=== PATIENT | male | born 1970 | race Two or more races ===

== ENCOUNTER 2023-10-21 10:40 | Outpatient (CLI) | payer OTHER, SELFPAY | END 2023-10-21 10:41 | disposition home or self-care (01) | LOC: AMB 10-27 23:51 | PROVIDERS: Visit Provider Emergency Medicine Emergency Medical Services | DX: R04.2 Hemoptysis (principal); R53.81 Other malaise | CPT/HCPCS: A0425; A0429 ==

== ENCOUNTER 2023-10-21 11:00 | Emergency (ER) | payer OTHER, SELFPAY ==
[2023-10-21 11:04] VITALS: BP 166/103; PULSE 76; RESP 18; TEMP 36.3; O2SAT 97
[2023-10-21] MEDS: dexAMETHasone 10 MG/ML inj PO (11:37)
--- NOTE | 2023-10-21 11:39 | ED_ITS ---
HPI - General Adult General Chief complaint: Cough Stated complaint: flu like symptoms Time Seen by Provider: 10/21/23 11:11 Source: patient Limitations: no limitations History of Present Illness HPI narrative: Complaining of not feeling well for about 2 weeks. He states that he feels fatigued in achy. Has a cough. Denies vomiting. He had diarrhea for the 1st time this morning. For the last 3 days he has not been eating secondary to decreased appetite. No urinary symptoms. Denies chest or abdominal pain. Patient is a resident at [facility], has been exposed influenza there. Related Data Home Medications Medication Instructions Recorded Confirmed No Known Home Medications 10/21/23 10/21/23 Allergies Allergy/AdvReac Type Severity Reaction Status Date / Time No Known Drug Allergies Allergy Verified 10/21/23 11:09 Review of Systems Status of ROS: Reports: 10 or more systems reviewed and unremarkable except as noted in History and below Exam Narrative: Exam Narrative: Overweight, well-developed patient , appears fatigued. Alert and oriented. Answers questions appropriately. Mood and affect are appropriate. Thoughts are goal oriented and rational. No tangential or magical thinking noted. Patient speaks in full sentences without needing to catch his breath. He is tachycardic. HEENT: Normocephalic atraumatic. Pupils are equally round reactive to light. Extraocular muscles are intact. Conjunctivae are moist without any icterus noted. Moist mucous membranes. Posterior pharynx is normal. Neck is soft w ithout any lymphadenopathy or thyromegaly. No masses are appreciated. Lips are dry, cracked with dried blood around them. Cardiovascular: Heart is tachycardic, with regular rhythm S1 and S2 are present without any murmurs. Lungs: Clear to auscultation bilaterally no wheezes rhonchi or rales are appreciated. Patient takes deep breaths without any discomfort. Abdomen: Soft, nontender and nondistended. He protuberant. Normal bowel sounds. No guarding or rebound. Extremities: Bilateral lower extremities are without edema. Skin: Well perfused without any obvious rashes. Const: Vital Signs, click to edit/add: Vital Signs - 24 hr 10/21/23 11:09 Temperature 101 F H Pulse Rate [Pulse Oximeter] 118 H Respiratory Rate 24 Blood Pressure [Ri ght Upper Arm] 147/69 H Pulse Oximetry 97 Oxygen Delivery Me thod Room Air Course Vital Signs Vital signs: Initial Vital Signs Temperature 101 F H 10/21/23 11:09 Temperature Source Temporal Artery Scan 10/21/23 11:09 Pulse Rate 118 H 10/21/23 11:09 Respiratory Rate 24 10/21/23 11:09 Blood Pressure 147/69 H 10/21/23 11:09 Blood Pressure Mean 95 10/21/23 11:09 Blood Pressure Position Semi-Fowlers 10/21/23 11:09 Pulse Oximetry 97 10/21/23 11:09 Oxygen Delivery Method Room Air 10/21/23 11:09 Vital Signs Temperature 101 F H 10/21/23 11:09 Pulse Rate 118 H 10/21/23 11:09 Respiratory Rate 24 10/21/23 11:09 Blood Pressure 147/69 H 10/21/23 11:09 Pulse Oximetry 97 10/21/23 11:09 Oxygen Delivery Method Room Air 10/21/23 11:09 Temperature 101 F H 10/21/23 11:09 Pulse Rate 118 H 10/21/23 11:09 Respiratory Rate 24 10/21/23 11:09 Blood Pressure 147/69 H 10/21/23 11:09 Pulse Oximetry 97 10/21/23 11:09 Oxygen Delivery Method Room Air 10/21/23 11:09 Discharge Plan Discharge Prescriptions: No Action No Known Home Medications Follow Up/Referrals: Provider,Not a Local [Primary Care Provider] -
--- NOTE | 2023-10-21 12:17 | ED.GENADULT ---
HPI - General Adult General Chief complaint: Cough Stated complaint: flu like symptoms Time Seen by Provider: 10/21/23 11:11 History of Present Illness HPI narrative: This 53-year-old male comes in reporting 2 weeks of upper respiratory symptoms including cough and nasal congestion. He does not report any fevers. He states that he is coughing more often at night and recently has noted some blood-tinged sputum. He arrives here with normal vital signs except his blood pressure is somewhat elevated. Related Data Previous Rx's Medication Instructions Recorded ketorolac 10 mg tablet 10 mg PO Q8H 5 days #15 tabs 10/21/23 Allergies Allergy/AdvReac Type Severity Reaction Status Date / Time No Known Drug Allergies Allergy Verified 10/21/23 11:09 Review of Systems Status of ROS: Reports: 10 or more systems reviewed and unremarkable except as noted in History and below Narrative: Constitutional: No fevers, no weight gain or loss. Eyes: No discharge. No vision changes. HENT: No congestion, no sore throat, no ear pain. Cardiovascular: No chest pain, no palpitations. Respiratory: No shortness of breath, no wheezes, no cough. Gastrointestinal: No abdominal pain, no vomiting, no diarrhea. Genitourinary: No dysuria, no hematuria. Musculoskeletal: Normal range of motion. Skin: No rashes, no pruritis. Neurological: No dizziness, weakness, sensory change, speech change. Endo/Heme/Allergies: No bruising or bleeding. No polydipsia. Pysch: no suicidality, no anxiety, no insomnia. All other systems reviewed and are negative. PFSH [facility] Social History Smoking Status: Never smoker How often do you have a drink containing alcohol: 4 or more times a week AUDIT-C Alcohol total score: 4 Non-prescribed substance use: denies use Exam Narrative: Exam Narrative: Constitutional: Well-developed, well-nourished, no acute distress. HEENT: Normocephalic, atraumatic. Neck: Normal range of motion. Nontender. Supple. Heart: Regular. No murmurs. Normal rate. Intact distal pulses. Lungs: Clear to auscultation. No chest discomfort. No wheezes, rhonchi, or rales. Abdomen: Normal bowel sounds. Nontender. No rebound tenderness. Genitalia: Deferred. Back: No midline tenderness. Normal range of motion. Extremities: Normal range of motion. No injury. Skin: Intact. No rash. Warm. No erythema or pallor. Neurologic: No altered sensation. No weakness. Alert and oriented. Psychiatric: No suicidality. No anxiety or depression. No insomnia. Nursing notes and vitals signs are reviewed. Const: Vital Signs, click to edit/add: Vital Signs - 24 hr 10/21/23 11:04 Temperature 97.3 F L Pulse Rate [Pulse Oximeter] 76 Respiratory Rate 18 [facility] 166/103 H Pulse Oximetry 97 Oxygen Delivery Me thod Room Air Course Vital Signs Vital signs: Initial Vital Signs Temperature 97.3 F L 10/21/23 11:04 Temperature Source Temporal Artery Scan 10/21/23 11:04 Pulse Rate 76 10/21/23 11:04 Respiratory Rate 18 10/21/23 11:04 Blood Pressure 166/103 H 10/21/23 11:04 Blood Pressure Mean 124 H 10/21/23 11:04 Blood Pressure Position Sitting 10/21/23 11:04 Pulse Oximetry 97 10/21/23 11:04 Oxygen Delivery Method Room Air 10/21/23 11:04 Vital Signs Temperature 97.3 F L 10/21/23 11:04 Pulse Rate 76 10/21/23 11:04 Respiratory Rate 18 10/21/23 11:04 Blood Pressure 166/103 H 10/21/23 11:04 Pulse Oximetry 97 10/21/23 11:04 Oxygen Delivery Method Room Air 10/21/23 11:04 Temperature 97.3 F L 10/21/23 11:04 Pulse Rate 76 10/21/23 11:04 Respiratory Rate 18 10/21/23 11:04 Blood Pressure 166/103 H 10/21/23 11:04 Pulse Oximetry 97 10/21/23 11:04 Oxygen Delivery Method Room Air 10/21/23 11:04 Medications Administered Medications: Discontinued Medications Generic Name Dose Route Start Last Admin Trade Name Freq PRN Reason Stop Dose Admin Dexamethasone 10 mg 10/21/23 11:53 10/21/23 11:37 Dexamethasone 10 Mg/Ml Inj PO 10/21/23 11:54 10 mg ONCE ONE Administration Medical Decision Making MDM Narrative Medical decision making narrative: This patient arrives with upper respiratory symptoms occurring over the past couple weeks. Nasal pharyngeal swab is obtained and returns negative for COVID and RSV. A returns positive for influenza A. The patient has normal exam and is not using any accessory muscles for breathing. He did receive an oral dose of dexamethasone 10 mg. He is okay to be discharged home and did receive a prescription for Toradol. Lab Data Labs: Lab Results 10/21/23 Range/Units 11:10 SARS-CoV-2 (PCR) Negative SARS-CoV-2 (Negative) Influenza Type A (PCR) POSITIVE PCR FLU A A (Negative) Influenza Type B (PCR) Negative PCR FLU B (Negative) RSV (PCR) Negative PCR RSV (Negative) Discharge Plan Discharge Clinical Impression: Influenza A Patient Disposition: Home, Self-Care Condition: Unchanged Additional Instructions: Take medication as needed and indicated. Follow up with MD or return if worsening. Prescriptions: New ketorolac 10 mg tablet 10 mg PO Q8H 5 Days Qty: 15 0RF Follow Up/Referrals: Provider,Not a Local [Primary Care Provider] - Stand Alone Forms: [employer] Info Instructions
[2023-10-21 12:29] LABS: PCR FLU A POSITIVE PCR FLU A (Negative); PCR FLU B Negative PCR FLU B (Negative); PCR RSV Negative PCR RSV (Negative); SARS PCR* Negative SARS-CoV-2 (Negative)
--- NOTE | 2023-10-21 13:21 | ED.NURSE ---
Spoke with Angelito at [facility]. 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 She states that there is an outbreak of Influenza A at the treatment facility.
== END 2023-10-21 13:35 | disposition home or self-care (01) ==
PROVIDERS: Emergency Provider Emergency Medicine Emergency Medical Services
DX: J09.X2 Influenza due to identified novel influenza A virus with other respiratory manifestations (principal)
CPT/HCPCS: 71046; 80048; 80076; 85025; 87631; 99283; 99284; J1100